=== PATIENT | female | born 1965 | race Caucasian/White ===

== ENCOUNTER → 2020-06-16 | Outpatient (CLI) | payer BC ==
[2020-06-16 08:33] LABS: HEMOGLOBIN 14.1 gm/dl (12.3-15.3); RED BLOOD COUNT 4.79 M/UL (4.00-5.10)
[2020-06-16 08:59] LABS: BUN/CREATININE RATIO 18 (0-10)
== END ==
LOC: LAB 07:48
PROVIDERS: Internal Medicine
DX: E03.9 Hypothyroidism, unspecified (principal); E55.9 Vitamin D deficiency, unspecified; Z13.1 Encounter for screening for diabetes mellitus; Z79.899 Other long term (current) drug therapy; Z13.220 Encounter for screening for lipoid disorders
CPT/HCPCS: 36415; 80053; 80061; 84439; 84443; 85025

== ENCOUNTER → 2021-02-02 | Outpatient (CLI) | payer BC ==
[2021-02-02 08:25] LABS: HEMOGLOBIN 14.1 gm/dl (12.3-15.3); RED BLOOD COUNT 4.7 M/UL (4.00-5.10); WHITE BLOOD COUNT 4.6 K/UL (4.5-11.0)
[2021-02-02 09:00] LABS: BUN/CREATININE RATIO 19 (0-10)
== END ==
LOC: LAB 07:17
PROVIDERS: Internal Medicine
DX: E78.5 Hyperlipidemia, unspecified (principal); E03.9 Hypothyroidism, unspecified; Z79.899 Other long term (current) drug therapy
CPT/HCPCS: 36415; 80053; 80061; 84439; 84443; 85025

== ENCOUNTER → 2021-07-13 | Outpatient (CLI) | payer BC ==
[2021-07-13 09:45] LABS: HEMOGLOBIN 13.7 gm/dl (12.3-15.3); RED BLOOD COUNT 4.72 M/UL (4.00-5.10); WHITE BLOOD COUNT 4.8 K/UL (4.5-11.0)
[2021-07-14 07:11] LABS: VITAMIN D, 25-HYDROXY 30.5 ng/mL (30.0-100.0)
[2021-07-14 08:14] LABS: A/G RATIO 1.4 (1.2-2.2); ALKALINE PHOSPHATASE, S 66 IU/L (44-121); ALT (SGPT) 21 IU/L (0-32); AST (SGOT) 22 IU/L (0-40); BILIRUBIN, TOTAL 0.4 mg/dL (0.0-1.2); BUN 11 mg/dL (6-24); BUN/CREATININE RATIO 17 (9-23); CALCIUM, SERUM 9.6 mg/dL (8.7-10.2); CARBON DIOXIDE, TOTAL 25 mmol/L (20-29); CHLORIDE, SERUM 102 mmol/L (96-106); CHOLESTEROL, TOTAL 200 mg/dL (100-199); CREATININE, SERUM 0.66 mg/dL (0.57-1.00); GLOBULIN, TOTAL 2.9 g/dL (1.5-4.5); GLUCOSE, SERUM 84 mg/dL (65-99); HDL CHOLESTEROL 70 mg/dL (>39); LDL CHOLESTEROL CALC 120 mg/dL (0-99); LDL/HDL RATIO 1.7 ratio (0.0-3.2); POTASSIUM, SERUM 4.7 mmol/L (3.5-5.2); SODIUM, SERUM 140 mmol/L (134-144); T. CHOL/HDL RATIO 2.9 ratio (0.0-4.4); TRIGLYCERIDES 52 mg/dL (0-149)
== END ==
LOC: LAB 07:50
PROVIDERS: Internal Medicine
DX: E78.5 Hyperlipidemia, unspecified (principal); E03.9 Hypothyroidism, unspecified; Z79.899 Other long term (current) drug therapy
CPT/HCPCS: 36415; 80053; 80061; 84439; 84443; 85025

== ENCOUNTER → 2022-01-19 | Outpatient (CLI) | payer BC ==
[2022-01-19 16:47] LABS: HEMOGLOBIN 14.3 gm/dl (12.3-15.3); RED BLOOD COUNT 4.8 M/UL (4.00-5.10); WHITE BLOOD COUNT 4.4 K/UL (4.5-11.0)
[2022-01-19 17:06] LABS: BUN/CREATININE RATIO 14 (0-10)
== END ==
LOC: LAB 16:24
PROVIDERS: Internal Medicine
DX: R79.89 Other specified abnormal findings of blood chemistry (principal)
CPT/HCPCS: 80053; 80061; 82607; 82728; 82746; 83540; 83550; 84439; 84443; 85025